=== PATIENT | female | born 1970 | race Caucasian/White ===

== ENCOUNTER → 2017-01-20 | Outpatient (CLI) | payer BC ==
[~2017-01-20] VITALS: Ht 174 cm; Wt 59.5 kg
[~2017-01-20] MED LIST: MULTI VITAMINS1 TAB PO; TYLENOL PM EXTR1 TA1 PO; VITAMIN B COMPL1 T16 PO
[2017-01-20 13:24] VITALS: BP 135/76; PULSE 85
== END ==
LOC: COL.RAD 12:45
DX: Z53.9 Procedure and treatment not carried out, unspecified reason (principal)